=== PATIENT | male | born 1960 | race Caucasian/White ===

== ENCOUNTER 2021-08-28 16:45 | Inpatient (IN) | payer BC, OTHER ==
[~2021-08-28] VITALS: Ht 182.9 cm; Wt 89.9 kg
[2021-08-29] MEDS ORDERED: LISINOPRIL2.5 MG PO (00:08)
[2021-08-29] MEDS ORDERED: CARBIDOPA-LEVO1 EAC7 PO (00:10)
[2021-08-29] MEDS ORDERED: CARBIDOPA-LEVO1 EAC9 PO (00:12)
[2021-08-29] MEDS ORDERED: BUSPIRONE HCL10 MG PO (00:13)
[2021-08-29] MEDS ORDERED: LAMOTRIGINE200 MG PO (00:17)
[2021-08-29] MEDS ORDERED: QUETIAPINE FUM200 MG PO (00:20)
[2021-08-29] MEDS ORDERED: LEXAPRO 10 MG T10 M2 PO (00:20)
[2021-08-29] MEDS ORDERED: ATORVASTATIN CA20 MG PO (00:22)
[2021-08-29] MEDS ORDERED: CLONAZEPAM 0.50.5 M1 PO (00:24)
[2021-08-29] MEDS ORDERED: LIPITOR 20 MG T20 M1 PO (00:25)
[2021-08-29] MEDS ORDERED: METFORMIN HCL500 M3 PO (00:27)
[2021-08-29] MEDS ORDERED: ACID-PEP20 MG PO (00:27)
[2021-08-29] MEDS ORDERED: ASA81BEC PO (00:28)
[2021-08-29] MEDS ORDERED: SENNA PLUS TAB1 EACH PO (00:28)
[2021-08-29] MEDS ORDERED: ACETAMINOPHEN PO (00:30)
[2021-08-29] MEDS ORDERED: ZOFRAN4 MG PO (00:31)
[2021-08-29] MEDS ORDERED: HEALTHYLAX17 GM PO (00:33)
[2021-08-29] MEDS ORDERED: MAG-AL LIQUID30 ML PO (00:35)
[2021-08-29] MEDS ORDERED: VITAMIN D325 MC2 PO (00:37)
--- NOTE | 2021-08-29 03:37 | NUR ---
PT WAS ADMITTED TO [facility] ON 08/29/21 AT 0053. PT WAS COOPERATIVE WITH ADMISSION PROCESS AND SIGNED IN VOLUNTARILY. PT ENDORSED SI WITH NOT CURRENT PLAN OR INTENT. PT AGREED TO COME TO STAFF IF SI WORSENED. PT DENIED HI. PT ENDORSED AUDITORY AND VISUAL HALLUCINATIONS OF SEEING/ HEARING SATAN. PT WAS CONCERNED ABOUT GETTING HIS NIGHT TIME MEDS STATING WIHTOUT THEM HE WOULD NOT BE ABLE TO SLEEP. PT AMBULATES WITH WALKER STATING THAT HE DOES NOT FALL AND REQUESTED HIS BED ALARM BE TURNED OFF. RN EXPLAINED THE IMPORTANCE OF KEEPING THE BED ALARM ON. FALL PRECAUTIONS REMAIN IN PLACE. VITAL SIGNS WERE OBTAINED: RESULTS WNL SKIN ASSESSMENT PERFORMED: NO REMARKABLE FINDINGS PT WAS SEARCHED
[2021-08-29 09:08] VITALS: BP 109/71
[2021-08-29 11:30] LABS: ANION GAP 10 mmol/L (7-16); BUN 15 mg/dL (7-18); CALCIUM 9.5 mg/dL (8.5-10.1); CHLORIDE 103 mmol/L (98-107); CHOLESTEROL 94 mg/dL (<200); CO2 31 mmol/L (21-32); CREATININE 0.9 mg/dL (0.7-1.3); GLUCOSE 125 mg/dL (74-106); HDL CHOLESTEROL 53 mg/dL (>40); LDL CHOLESTEROL 21 mg/dL (<100); POTASSIUM 4.1 mmol/L (3.5-5.1); SODIUM 144 mmol/L (136-145); TC:HDL 1.8 Ratio (Not establshd); TRIGLYCERIDE 101 mg/dL (<150); VLDL 20 mg/dL (<40)
--- NOTE | 2021-08-29 13:53 | NUR ---
Assumed pt care at 0700. Pt was alert and oriented x4. Assessments completed, vss. Denies si/hi. No c/o pain at this time. Took meds whole no difficulty noted. lungs clear, active bowel sound. Calm, cooperative and depressed upon assessments. Ambulates with a walker. Continent of bowel and bladder. Attended afternoon groups. Make needs known to staff. At this time, Pt is in his room resting. Will continue to monitor.
[2021-08-29 14:31] LABS: URINE BILIRUBIN NEGATIVE (Negative); URINE BLOOD NEGATIVE (Negative); URINE CLARITY CLEAR; URINE COLOR YELLOW; URINE GLUCOSE-RANDOM* NEGATIVE (Negative); URINE KETONES NEGATIVE (Negative); URINE LEUKOCYTES-REFLEX TRACE (Negative); URINE NITRITE-REFLEX NEGATIVE (Negative); URINE PROTEIN (DIPSTICK) NEGATIVE (Negative)
--- NOTE | 2021-08-29 14:42 | NUR ---
08-29-2021--13:00--GROUP--Patient was in the [facility] area and present for group. (The topic was anger and where in our bodies we first start feeling angry.) He participated fully and shared his ideas and experiences with the group.
--- NOTE | 2021-08-29 17:32 | NUR ---
KATHRYN and Dr. Peguero met with Pt. Pt was oriented x4. Pt does endorse SI and HI. Pt stated he has auditory hullucinations. Pt stated "I hear satan and he tells me to hurt somebody". Pt reported previous suicide attempt 2 years ago by jumping through a closed window. Pt has lived at [facility] for 3-4 years. Pt stated his , Hallie, is Pt's DPOA. Pt has been 41 years and has 3 adult children. Pt worked as a diesel machanic for 20 years. Pt was dx with nikolas in 2002. Pt sees Dr. Earnest Lopez for neurology. Pt recieves outpt services at [facility]. Pt sees Dr. Jovany Santoyo for psychiatry. Pt's therapist is Lila at [facility]. Pt's /DPOA was able to talk to by phone. Pt did leave the room at this time. Hallie gave a brief history of the Pt's. Hallie was concerned that the Pt's mental health needs were not being met at his currently placement but explained that no other facility has accepted the Pt. Hallie informed she has looked for different placements in state and out of state with no luck. A family meeting was scheduled for 09/05/2021 @ 1130am. There were no further questions or concerns during this meeting. KATHRYN will continue to follow.
[2021-08-29 19:48] VITALS: BP 115/77
[2021-08-29 22:06] LABS: GLYCOHEMOGLOBIN (HGB A1C) 5.4 % (4.8-5.6)
--- NOTE | 2021-08-29 23:22 | NUR ---
AT ONSET OF QA DEVELOPER PT WAS SITTING IN DAY ROOM WATCHING TV. THIS SHIFT PT WAS ALERT AND ORIENTED X4. AFFECT WAS CONSTRICTED BUT PT DID MADE A JOKE AND LAUGH WITH STAFF. MOOD APPEARS TO BE IMPROVED SOME SINCE ADMISSION LAST NIGHT. PT WAS CONCERNED WITH MEDICATION CHANGES AND WAS WORRIED HE MAY NOT SLEEP WELL. PT DENIED HAVING SI AND HI. PT STATED HE WAS STILL SEEING AND HEARING SATAN BUT NOT MUCH. PT WAS COMPLIANT WITH MEDICATIONS AND VITAL SIGNS. FALL PRECAUTIONS ARE IN PLACE, BUT PT AMBULATES INDEPENDENTLY WITH A WALKER.
--- NOTE | 2021-08-30 11:56 | NUR ---
Admit to [facility]: Pt noted with dx DMII, parkinson's. Hx deep brain stimulation and sees a neurologist. Recently with visual and auditory hallucinations, med changes noted to sinemet and seroquel. On regular diet, no c/o chewing/swallowing issues. Intake of 100% all meals since admit. BMI 27, WNL. No reports of recent weight loss or poor intakes on admit screen. Place at low nutrition risk.
--- NOTE | 2021-08-30 12:48 | NUR ---
PATIENT WAS IN BED ASLEEP WHEN CARE ASSUMED. WHEN AWAKEN, PATIENT HAD BREAKFAST IN ROOM. MORNING MEDICATION GIVEN IN THE DAYROOM, WELL TOLERATED. PATIENT PARTICIPATES IN GROUP THERAPY. PATIENT DENIES SUICIDAL/HOMICIDAL IDEATION, HE RATES BOTH DEPRESSION/ANXIETY 5/10. PRN TYLENOL GIVEN FOR C/O HEADACHE 06/10, WITH PARTIAL EFFECT. PAIN DECREASED TO 5/10 UPON REASSESSMENT. PATIENT CONTINUE TO ENDORSE VESUAL HALLUCINATION SEES "DEVIL WITH HORN". AFFECT IS FLAT/BLUNTED, MOOD IS EUTHYMIC. NO SIGN OF ACUTE DISTRESS NOTED, WILL MONITOR FOR SAFETY.
[2021-08-30 19:43] VITALS: BP 99/62
[2021-08-30 19:49] VITALS: BP 106/69
--- NOTE | 2021-08-30 22:09 | NUR ---
PATIENT RESTING IN THE COMMON AREA BY HIMSELF WATCHING TV. PT IS CALM AND COOPERATIVE. STATES THAT HE WANTS TO TAKE HIS MEDICATIONS AT 2000. SHOWS NO S/S OF AGGRESSION, HALLUCINATIONS OR ANXIETY. APPEARS TO HAVE FLAT AFFECT. COMPLIES WITH MEDICATION AND TREATMENT. DENIES ANY PAIN. VSS. PATIENT WENT TO BED AFTER TAKING HIS MEDICATIONS.
[2021-08-31 09:11] VITALS: BP 96/68
[2021-08-31 11:22] VITALS: BP 96/67
--- NOTE | 2021-08-31 14:49 | NUR ---
Sunny started the day off calm and cooperative and was participating in morning group. He voiced some anxiety 05/11 but wanted to see if his scheduled seroquel would help. He denied RIVERA at that time and denied SI/HI. When group had concluded pt went to his room and shortly after was noted screaming from his room. Staff approached pt but pt was unable to verbalize what was bothering him, although he appeared fearful. Dr. Whitney also witnessed this and ordered ativan 2 mg IM and cogentin 1 mg IM to be given as a one time order. Pt was compliant with PRN medication given and voiced wanting to take a nap. He took a nap and voiced "feeling a lot better" once up. He then participated in evening groups and continued to be medication and meal compliant. Pt denied pain or any physical complaints at this time. Will continue to monitor.
[2021-08-31 19:19] VITALS: BP 118/78
--- NOTE | 2021-08-31 22:23 | H ---
[facility] [place] [address] HISTORY AND PHYSICAL Name: MAYITO DIAZ Room #: 524B-B ADM IN M.R.#: [id number] Admission: 08/29/21 Attend Phys: Waldemar Whitney DO Discharge: Date of : 62 Report #: [id number] THIS REPORT FOR: cc: Terell Fisher MD, Mark C. MD Kerstein,Waldemar Ball DO ~ DATE OF SERVICE: 08/29/2021 DATE OF ADMISSION: 08/29/2021 DATE OF EVALUATION: 08/29/2021 ATTENDING PSYCHIATRIST: Waldemar Whitney DO MEDICAL CONSULTANTS: LIBRA Chacko and Junito Maier MD and his hospitalist team. REASON FOR PSYCHIATRIC ADMISSION: Suicidal ideation, command auditory hallucinations, advancing Parkinson's disease, possible Parkinson's related dementia. SOURCES OF INFORMATION: Records from [facility], which was the sending hospital, telephone conversation with his , Hallie, interview with the patient, records from [facility]. HISTORY OF PRESENT ILLNESS: This is a 60-year-old disabled, male, , father of several children. The patient is a resident at [facility]. His admission date there was 07/11/2021. He has been in long-term care facilities since around 2017. The patient has significant Parkinson's related dementia, diagnosed around 2002. He had deep brain stimulation placed in 2009. He is managed by Dr. Earnest Lopez, movement disorders neurologist at [facility]. The patient is unclear if he has an outpatient psychiatrist. Primary care physician is Terell Fisher in [facility]. The patient is able to tell me the month, day, date, year with a little bit of delay on interview today, so that is a good thing. He is seen by Dr. Santoyo at [facility] in [place], [place]. Patient had been in a rehab facility to address debilitating Parkinson's disease. He was experiencing increased depression, suicidal ideation, thoughts of harming others and some auditory hallucinations, this was per his roommate. In terms of the others, he is not wanting to harm anyone and reported the thoughts appropriately. I guess he was screened that day and they did not send him to the hospital. Moving onto records from [facility], a 60-year-old male with a history of high blood pressure, diabetes, ulcerative colitis, Parkinson's disease and depression and anxiety, previous history of self-harming and required inpatient [facility] [address] [place] [address] HISTORY AND PHYSICAL Name: MAYITO DIAZ Room #: 524B-B ADM IN M.R.#: [id number] Admission: 08/29/21 Attend Phys: Waldemar Whitney DO Discharge: Date of : 62 Report #: [id number] psychiatric admission, who presents from [facility] for psychiatric screening. The patient endorses ongoing depression and anxiety over numerous factors including his health and housing status. He states he has been living at [facility] for the past 3 to 4 years, was in the ER on 06/21 with SI, transferred to an inpatient psychiatric facility. The related that this is a new facility in [place] near [facility]. The patient was placed on Depakote there and the patient did not tolerate it well, became excessively sedated and medicines were discontinued. The patient has recurrent self-harm thoughts of wanting to . Dr. Earnest Lopez reiterated this, thinking about throwing himself out of the window, the ER reported, also endorses homicidal thoughts, but not directed to any particular person. Denies use of drugs or alcohol. assisted medication regimen, I will review in a bit. He has an [id number] DNR order and I have noticed no code here at [facility]. MEDICATIONS: At [facility], carbidopa/levodopa 50/200mg cr one tab oral at bedtime, carbidopa 25/100 one tablet by mouth 1 time a day, carbidopa 25/100 one tablet 3 times a day. According to Dr. Lopez, the morning dose was supposed to be a tablet and a half, then at 10:00, 1:00, and 4:00, and then the evening dose, cholecalciferol 1000 International Units daily by mouth, clonazepam 0.5 mg by mouth 2 times a day, famotidine 20 mg by mouth 2 times a day, lamotrigine one tablet by mouth 2 times a day. I guess he is on that due to the DBS device, Lexapro 10 mg oral daily, Linzess 145 mcg by mouth 1 time a day related to ulcerative colitis, acetaminophen 650 by mouth q. 6 hours p.r.n. for pain, fever; aspirin 81 mg oral daily for heart protection, atorvastatin 20 mg oral daily, hyperlipidemia; buspirone 2 tablets by mouth 3 times a day, lisinopril 2.5 mg oral daily for hypertension, metformin 2000 mg by mouth in the evening, milk of magnesia, polyethylene glycol, senna 8.6 mg daily. MEDICAL HISTORY: Depressive disorder, Parkinson's disease, DBS in 2008, catheterization of an artery. FAMILY HISTORY: Father, emphysema in lung. Mother, cardiovascular and diabetes mellitus. SOCIAL HISTORY: Alcohol current beer 1-2 times per year. Employment, disability. Lives in long-term care facility, uses a walker. Former smoker, unclear pack year history. LABORATORY DATA: From [facility], urinalysis showed protein at 10 mg/dL, urobilinogen 2 mg/dL, leukocyte esterase trace, wbc's 10-25. There was a culture sent. The patient's urine drug screen was negative. White count 7.2, H and H 15.8 and 44.8, platelet count 224. Eosinophil percentage was 0.8%, which was low. Sodium 139, potassium 3.9, chloride 103, bicarbonate 27, anion gap 9, glucose 119, BUN 9, creatinine 0.6, calcium 9.4, total protein 7.0, albumin 4.4, [address] [address] HISTORY AND PHYSICAL Name: MAYITO DIAZ Room #: 524B-B ADM IN M.R.#: [id number] Admission: 08/29/21 Attend Phys: Waldemar Whitney DO Discharge: Date of : 62 Report #: [id number] alkaline phosphatase 103, AST 9, ALT 11, total bilirubin 0.5, GFR sik-Pmozxbg-Jfkohwjh greater than 90. Acetaminophen less than 5, salicylate less than 0.3. Ethanol level less than 10. COVID PCR was negative. Flu A and B negative. RSV by PCR negative. The patient reports a previous history of suicide attempt, but I do not have the details of it and it looks like just in note from outside hospital. PHYSICAL EXAMINATION: VITAL SIGNS: Here at the [facility], temperature 36.6, pulse 78, respirations 17, BP 109/71, O2 sat 96%. BMI 26.9, 182.88 cm. GENERAL: Slow gait, frail-appearing, wearing street clothes red shirt. MENTAL STATUS EXAMINATION: Well-developed, ill-appearing male. He does have some left facial droop, unclear duration, attention fair. Concentration limited. Speech slow, soft, monotone. Thought Process: Linear and goal directed. mood/affect- constrcited Thought content focused on "getting help." Endorsed auditory hallucinations, no visual hallucinations. Denied suicidal intent or plan presently, but recently reported this. Denied homicidal intent or plan. Memory not formally tested. Insight and judgment limited. Fund of knowledge below average. LABORATORY DATA: No radiology, no microbiology. 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 Denied history of service. FORMULATION: A 60-year-old male, patient of Dr. Earnest Lopez at with suicidal ideation, auditory hallucinations. REVIEW OF SYSTEMS: CONSTITUTIONAL: No pain, no weakness. No fatigue. EAR, NOSE, MOUTH, THROAT: No ear pain, no sore throat. RESPIRATORY: No shortness of breath, no cough. CARDIOVASCULAR: No chest pain, no palpitations, no syncope. GASTROINTESTINAL: No abdominal pain, no nausea, no vomiting, no diarrhea. GENITOURINARY: No dysuria, no hematuria. NEUROLOGIC: No headache, no dizziness, no numbness, no weakness. PSYCHIATRIC: Depression, SI, auditory hallucinations. Otherwise, 10-point review of systems was negative. ALLERGIES: CONTRAST DYE AND PREDNISOLONE. DIAGNOSES: At this time, major depressive disorder, single episode, severe degree with psychotic features, ruling out for Parkinson's related dementia, [facility] [address] [place] [address] HISTORY AND PHYSICAL Name: MAYITO DIAZ Room #: 524B-B ADM IN M.R.#: [id number] Admission: 08/29/21 Attend Phys: Waldemar Whitney DO Discharge: Date of : 62 Report #: [id number] Parkinson's disease, status post deep brain stimulation implantation in 2008 and 2009. PLAN: Evaluate, stabilize, obtain collateral. The patient is voluntary. Regarding his medications, I spoke to Dr. Lopez. We will make a few changes, so his Sinemet 25/100 regimen is back to 1.5 tabs at 0700, one tab at 10:00, 1:00, 4:00 p.m., and 25/100 of long-acting Sinemet CR or ER in the evening. Continue with metformin 1000 mg with dinner. Seroquel will be given during the day at 25 mg in the morning and 25 mg at 1600 and then 200 mg at bedtime, lisinopril 2.5 mg oral daily, lamotrigine 200 mg p.o. b.i.d. for seizure prevention. famotidine 20 mg daily, Lexapro 10 mg oral daily, vitamin D 1000 International Units oral daily. Discontinue buspirone, atorvastatin 20 mg oral daily, aspirin 81 mg oral daily, senna 8.6 mg daily p.r.n., polyethylene glycol daily, discontinue clonazepam as well. STRENGTHS: Insured, has a placement, has support. WEAKNESSES: Early aggressive Parkinson's disease, possible Parkinson's related dementia. Once the hallucinations are somewhat down, we would like to consider neuropsychological testing for Parkinson's related dementia. I think this way the family and the treating physician knowledge of prognosis may better line up with aggressiveness of medication regimen. Time spent on this case, greater than 60 minutes, greater than 50% of time was in review of records and coordination of care. <ELECTRONICALLY SIGNED> By: Waldemar Whitney, 08/31/21 [id number] Waldemar Whitney, /nt
--- NOTE | 2021-09-01 03:49 | NUR ---
PATIENT DOING WELL THIS EVENING. HE AGAIN REQUESTED HIS HS MEDICATIONS AT 1999. HE STATES THAT HE HAS NOT HAD ANY MORE EPISODES OF HALLUCINATIONS SINCE EARLIER IN THE DAY. HE IS COMPLIANT AND FOLLOWS ALL DIRECTIONS. CONTIUES TO PRESENT WITH FLAT AFFECT. DENIES ANY PAIN. VSS. AMBULATES WELL WITH HIS WALKER. NO S/S OF DISTRESS NOTED. WILL CONTINUE TO MONITOR FOR CHANGES IN PATIENT STATUS.
[2021-09-01 09:07] VITALS: BP 116/76
[2021-09-01 10:09] VITALS: BP 116/76
--- NOTE | 2021-09-01 15:07 | NUR ---
Updates were faxed to [facility] Forst
[2021-09-01 19:30] VITALS: BP 125/71
--- NOTE | 2021-09-02 02:21 | NUR ---
PATIENT RATES HE ANXIETY A 3/10 AND DENIES DEPRESSION. PATIENT STATES HE IS NO SI OR HI AT THIS TIME. PATIENT AMBULATES WITH WALKER, IS MEDICATION COMPLIANT, IS CONTINENT OF BOWEL AND BLADDER AND IS VERY PLEASANT.
[2021-09-02 09:27] VITALS: BP 106/61
[2021-09-02 11:13] VITALS: BP 106/61
--- NOTE | 2021-09-02 15:00 | NUR ---
Sunny was alert and oriented x4 this shift. He was calm, cooperative, and pleasant with a flat, constricted affect. He reported anxiety 5/10 this morning and rated depression 3/10, 10 being the worst. This RN and pt discussed coping skills and pt stated he was going to read to help his anxiety. Pt a couple hours later came up stating his anxiety was starting to peak and asked for PRN medication; ativan 1 mg PO PRN given per MAR with effectivenss. Pt participated in groups throughout the day and was medication and meal compliant, without difficulty. He ambulated using his walker and transfers independently with cares. He denied SI/HI/RIVERA this shift and stated the last time he experienced RIVERA was on . Pt denied physical c/o this shift and did not appear in distress. Will continue to monitor.
[2021-09-02 19:33] VITALS: BP 111/67
--- NOTE | 2021-09-03 02:55 | NUR ---
PATIENT HAS BEEN IN DAYROOM ALL EVENING, RATES ANXIETY A 4/10 AND DENIES SI/HI. PATIENT HAS A FLAT AFFECT AND DENIES HEARING VOICES OR SEEING THINGS. PATIENT IS MEDICATION COMPLIANT, AMBULATES WITH WALKER, IS CONTINENT OF BOWEL AND BLADDER. NO CONCERNS NOTED
[2021-09-03 09:52] VITALS: BP 132/88
--- NOTE | 2021-09-03 10:56 | NUR ---
Faxed patient updates
[2021-09-03 12:55] VITALS: BP 132/88
--- NOTE | 2021-09-03 16:12 | NUR ---
Sunny is alert and oriented x4. This morning there was some confusion on the rules regarding COVID and pt's being allowed out of their rooms. Pt voiced frustration regarding this as he believed he was told he could only come out of his room for groups. Clarification was received from the house mover supervisor and pt was updated that he may come out of his room but was encouraged to wear a mask and distance self from others, which pt was compliant with. Pt voicing increasing anxiety throughout the morning and received PO PRN ativan around 1130 with effectiveness. Pt also had c/o a RIVERA and received tylenol with effectiveness. Pt was medication and meal compliant, without difficulty. He denied SI/HI/RIVERA and participated in groups, will continue to monitor.
[2021-09-03 19:30] VITALS: BP 104/63
--- NOTE | 2021-09-04 00:13 | NUR ---
PATIENT DOING WELL THIS HS. RESTING IN COMMON AREA WATCHING TV. STATES THAT HE HAS NOT HAD ANY A/V/H TODAY. DENIES ANY PAIN OR NEEDS. REQUESTS TO HAVE HIS MEDS EARLY AGAIN SO HE CAN GO TO BED. COMPLIANT WITH ALL MEDICATION AND TREATMENT. AMBULATES WELL WITH ASSISTANCE OF HIS WALKER. NO S/S OF DISTRESS NOTED. WILL CONTINUE TO MONITOR FOR CHANGES IN STATUS.
[2021-09-04 09:41] VITALS: BP 104/73
[2021-09-04 12:37] VITALS: BP 104/73
--- NOTE | 2021-09-04 13:13 | NUR ---
RESUMMED CARE FROM OVERNIGHT SHIFT THIS AM, PATIENT IN ROOM SITTING ON BED QUIET. I WAS TALKING WITH PATIENT AND DOING MY ASSESSMENT PATIENT STATES HE WAS HEARING VOICES. HE STATES THE VOICES WAS TELLING HIM TO KILL SELF, PATIENT STARTED YELLING AND SCREAMING AND COVERED HIS EARS. I GAVE PATIENT HALDOL 2 MG IM AND GAVE HIS MORNING MEDICATION TO HELP PATIENT CALM DOWN. PATIENT DENIES SI/HI/VH BUT HAS AUDITORY HALLUCINATIONS. PATIENTS ABDOMEN SOFT BOWEL SOUNDS PRESENT, PATIENTS LUNGS CLEAR. AFTER MEDICATION PATIENT CAME TO NURSES STATION AND ASKED FOR ATIVAN. I TOLD PATIENT HE ALREADY HADHIS MORNING DOSE AND IT WAS TO EARLY TO GET MORE. PATIENT HAS CALMED DOWN AND RESTING QUIETLY WILL CONTINUE TO MOMITOR PATIENT FOR SAFETY AND BEHAVIORS.
[2021-09-04 14:24] LABS: ALBUMIN 3.8 g/dL (3.4-5.0); CALCIUM 9.2 mg/dL (8.5-10.1); CREATININE 0.9 mg/dL (0.7-1.3); TOTAL BILIRUBIN 0.4 mg/dL (0.2-1.0)
--- NOTE | 2021-09-04 16:48 | NUR ---
SW completed SLUMS with the Pt. Pt scored 21/30. Assessment placed in the chart
--- NOTE | 2021-09-05 01:03 | NUR ---
AT ONSET OF SHIFT PT WAS SITTING CALMLY IN THE DAY ROOM WATCHING TV. THIS SHIFT PT WAS ALERT AND ORIENTED X4. AFFECT WAS CONSTRICTED BUT PT DID SMILE AT RN. PT WAS COMPLIANT WITH VITAL SIGNS AND MEDICATIONS. REQUESTED TYLENOL FOR A HEAD ACHE IN THE EVENING. SPEECH WAS DELAYED. PT STATED HIS DEPRESSION IS BETTER. WHEN ASKED ABOUT SI, PT PAUSED FOR A LONG TIME BEFORE REPLYING NO. WHEN ASKED ABOUT HALLUCINATIONS PT STATED AUDITORY HALLUCINATIONS WERE BAD TODAY, BUT THEY WERE BETTER IN THE EVENING. FALL PRECAUTIONS ARE IN PLACE.
[2021-09-05 05:27] LABS: ABSOLUTE NEUTROPHILS 3.3 thou/uL (1.4-8.2); BASOPHILS 0.6 % (0.0-2.0); EOSINOPHILS 2.5 % (0.0-3.0); HEMATOCRIT 43.1 % (42.0-52.0); HEMOGLOBIN 14.7 gm/dL (14.0-18.0); LYMPHOCYTES 34.9 % (24.0-44.0); MCH 31.2 pg (26.0-34.0); MCV 91.8 fL (80.0-100.0); MONOCYTES 7.6 % (1.0-8.0); PLATELET COUNT 212 thou/uL (150-400); POLYS 54.4 % (36.0-66.0); RDW 13.5 % (10.5-14.5); WBC 6.1 thou/uL (4.0-11.0)
[2021-09-05 09:28] VITALS: BP 109/76
[2021-09-05 09:29] VITALS: BP 109/76
--- NOTE | 2021-09-05 11:34 | NUR ---
RT Progress Note- Sunny has been present in most recreation therapy groups since his admission. He has missed two groups in particular following outbursts of yelling and panic, requiring medication to be given. He states both times that he was having hallucinations of a devil and they were terrifying. When present in groups, Sunny does participate in discussions but does so with a flat affect and very soft speech. He is able to identify having things in his life that make it worth living for such as family, but endorses still feeling depressed. Of note- patient enjoys talking about sports (especially basketball and football) and this seems to brighten his affect. MANAGER OF INVESTIGATIONS will continue to encourage his participation.
--- NOTE | 2021-09-05 13:48 | NUR ---
Sunny was alert and oriented x4 this shift. He was calm and cooperative with a constricted affect throughout the day. He is anxious at times, and voiced increased anxiety this morning and received PRN PO ativan with effectiveness per JAN. Pt also received tylenol PRN for a RIVERA with effectiveness. He was medication and meal compliant, without difficulty. He stated he had not had a BM in 2 days and was given milk of magnesia and prune juice per pt request. He denied SI/HI/RIVERA and stated that last time he experienced RIVERA was yesterday. Pt had a family meeting with KATHRYN, Dr. Whitney and his today. Pt participated in groups throughout the day. He ambulated using his walker and is able to function independently around the unit, without difficulty. Will continue to monitor.
[2021-09-05 19:49] VITALS: BP 102/84
[2021-09-05 20:30] VITALS: BP 102/84
--- NOTE | 2021-09-06 02:50 | NUR ---
PATIENT HAD REQUESTED TO BE GIVEN A PAIN PILL WITH HIS HS MEDICATIONS FOR [id number]. WHEN THIS NURSE ASSESSED HIS PAIN UPON GIVING HS MEDICATIONS, HE STATED HIS PAIN WAS GONE AND DID NOT NEED ANYTHING. HE TOOK HIS SCHEDULED MEDICATIONS WITHOUT INCIDENT. SLEPT QUIETLY INTERMITTENTLY, ABLE TAKE SELF TO THE TOILET INDEPENDENTLY. CONTINUE POC.
--- NOTE | 2021-09-06 08:49 | NUR ---
Followup: continues to eat well, 75-100% of meals. No new wt since 08/31. Continue regular diet. Remains low nutrition risk
[2021-09-06 09:43] VITALS: BP 105/68
[2021-09-06 11:27] VITALS: BP 105/68
--- NOTE | 2021-09-06 15:47 | NUR ---
Sunny was alert and oriented x4 throughout the day. He was calm, cooperative, and pleasant with a blunted affect. He voiced c/o anxiety this afternoon leading up to his 1500 meeting with his and request ativan PO given per MAR with effectiveness. This morning pt stated that he had not had a BM in 3 days and was given prune juice; pt later reported having a BM. Senna BID was ordered for pt, but pt refused his first dose stating "I don't need that". Pt was otherwise meal and medication compliant, without difficulty. Pt denied SI/HI/RIVERA and contracted for safety. He attended groups and was in the dayroom for most of the shift. During tx team we discussed possible D/C for end of the week. Pt did not voice other complaints this shift, will continue to monitor.
--- NOTE | 2021-09-06 18:58 | NUR ---
KATHRYN and Dr. Peguero particpated in a phone call with Hallie. The Pt was also apart of this meeting. An update was given on the Pt and medications were discussed. Discharge was also discussed. Pt will need a follow up appt with psychiatrist, therapist, and PCP. KATHRYN spoke with the DON at [facility]. Discharge was set up for 09/08/2021 @ 1000. Pt will be transported by [facility]
[2021-09-06 19:37] VITALS: BP 103/70
--- NOTE | 2021-09-07 04:38 | NUR ---
ASSUMED CARE ON 09/06/21 @ 1900, SEATED ON THE SOFA IN THE DAY ROOM WATCHING TV MOVIE, COOPERATIVE WITH CARE AND ASSESSMENT. HRRR, LUNGS CTA ABILAT ABD N X 4Q, REPORTS GOOD BM TODAY. REFUSES SENNA. PLEASANT AFFECT NOTED A&OX3-4. RETIRED TO BED @ HS. AMBULATES WITH A WALKER WITH A STEADY GAIT. SCHEDULED TO D/C ON Saturday09/08/21.
[2021-09-07 09:55] VITALS: BP 104/67
[2021-09-07 11:10] VITALS: BP 104/67
--- NOTE | 2021-09-07 12:03 | NUR ---
Assumed care from cloth drier this am. Client was in room sitting on bed during this time. Client was oriented 4x at this time. Client denied any anxiety and depression and stated that he did not have any audio or visual hallucinations today. Client stated that he was in pain, having a headache at 5/10 and requested prn tylenol. Client denied si and hi during the assessment. Client present with clear lung sounds upon ausculttation. Bowel sounds were present in all quadrants. Client voiced that he would be leaving on Saturday to go to a facility, and during this time, client and nursing spoke about client plans and goals. Morning medications were given to client, as well as prn medications. No further concerns at this time. Will continue to monitor for safety and psychiatric concerns.
--- NOTE | 2021-09-07 18:20 | NUR ---
Pt has the following follow up appointments: Psychiatry- Dr Jovany Santoyo 09/11/2021 @ 1345 Psychotherapy- Lila ( Tim Lara) 09/13/2021 @ 1037
[2021-09-07 19:16] VITALS: BP 95/58
--- NOTE | 2021-09-08 03:08 | NUR ---
PATIENT IS HAPPY TO BE LEAVING AND STATES HE HAS A MORE POSTIVE OUTLOOK ON LIFE. PATIENT RATES ANXIETY A 4/10 AND DEPRESSION 2/10 AND MELINA PAIN. PATIENT IS ATTENDING GROUPS AND BELIEVES THEY HAVE HELPED. SLEEP AND APPETITE ARE GOOD. PATIENT IS MEDICATION COMPLIANT, CONTINENT OF BOWEL AND BLADDER AND USES A WALKER TO AMBULATE. DENIES SI/HI.
[2021-09-08] MEDS ORDERED: SEROQUEL300 MG PO (09:07)
[2021-09-08 09:08] VITALS: BP 117/75
[2021-09-08] MEDS ORDERED: SEROQUEL 25 MG25 MG PO (09:08)
[2021-09-08] MEDS ORDERED: CARBIDOPA-LEVO1 EAC9 PO (09:10)
[2021-09-08] MEDS ORDERED: SINEMET 25-1001 EAC1 PO (09:11)
[2021-09-08] MEDS ORDERED: CARBIDOPA-LEVO1 EAC8 PO (09:12)
[2021-09-08] MEDS ORDERED: SENNA8.8 MG/5 M PO (09:15)
[2021-09-08] MEDS ORDERED: METFORMIN HCL500 MG PO (09:16)
--- NOTE | 2021-09-08 11:52 | NUR ---
Assumed pt care at 0700. Pt was alert and oriented x4. Assessments completed, vss. Lungs clear, active bowel sounds. DENIES SI/HI, c/O PAIN, TYLENOL administered as ordered. Took meds whole, no difficulty noted. Ambulates with a walker. C/o anxiety, prn Ativan administered. Continent of bowel and bladder. Makes needs known to staff. 1040 pt was d/c with his belongings, d/c packet and d/c summary. Pt was transported via w/c to ER exit. 1152 report was called to Nila at [facility].
--- NOTE | 2021-09-10 21:27 | D ---
[facility] [place] [address] DISCHARGE SUMMARY Name: MAYITO DIAZ Room #: 528A-A DIS IN M.R.#: [id number] Admission: 08/29/21 Attend Phys: Waldemar Whitney DO Discharge: 09/08/21 Date of : 62 Report #: [id number] THIS REPORT FOR: cc: Terell Fisher MD, Mark C. MD Kerstein,Waldemar Ball DO ~ DATE OF SERVICE: 09/08/2021 INPATIENT PSYCHIATRIC DISCHARGE SUMMARY ATTENDING PSYCHIATRIST: Waldemar Whitney D.O. VMWARE ENGINEER: Dr. Cody Lr. DISCHARGE DIAGNOSES: 1. Major depressive disorder, recurrent, severe degree with psychotic features, improved. 2. Parkinson's disease. 3. Mild neurocognitive disorder with SLUMS score of 23/30. Additional medical comorbidities, hypertension, hyperlipidemia, diabetes mellitus, gastroesophageal reflux disease, constipation, gait disturbance secondary to Parkinson's disease. The patient is discharging to the [facility]. He received his psychiatric care by Dr. Santoyo in [facility] in [place]. PCP is in private practice, Faheem is a long time patient and did have deep brain stimulation, which is managed by Dr. Earnest Lopez at the [facility]. Please send discharge summary to all the above-named providers. The patient ambulates with a gait, needs assistance with bathing. DIET: Regular. ACTIVITY LEVEL: As tolerated. DISCHARGE MEDICATIONS: Lisinopril 2.5 mg oral daily for hypertension, lamotrigine 200 mg oral twice daily for mood stabilization, Lexapro 10 mg oral daily for depression, atorvastatin 20 mg oral daily for hyperlipidemia, famotidine 20 mg oral twice daily for GERD, aspirin 81 mg oral daily for hypertension, vitamin D3 25 mcg oral daily for supplementation, Seroquel 300 mg oral at bedtime and 75 mg oral with meals for psychosis. His Sinemet regimen is one 25/100 tablet at 0700, one 25/100 tablet at 10:00 a.m., 1:00 p.m., 4:00 p.m. and one 25/100 ER tablet at 2100. He takes his Senna liquid 8.8 mg oral twice daily, metformin 1000 mg oral daily with dinner for mild diabetes. LABORATORY DATA: This admission, hematology: White count 6.1, H and H 14.7 and 43.1, platelet count 212. CMP was within normal limits except AST and ALT mildly low at 14 and 11. Hemoglobin A1c normal at 5.4. Triglycerides 101, [address] [address] DISCHARGE SUMMARY Name: MAYITO DIAZ Room #: 528A-A [facility] IN ..#: [id number] Admission: 08/29/21 Attend Phys: Waldemar Whitney DO Discharge: 09/08/21 Date of : 62 Report #: [id number] cholesterol 94, LDL 21, HDL 53. Urinalysis this admission on 08/29 was negative. COVID-19 serology was negative on 08/28, 08/31, and 09/02, that was by the PCR. REASON FOR ADMISSION: Back on 08/29, a 61-year old male, , father of several children or adults, he is a long-term care resident at [facility], apparently the patient had suicidal ideation, command auditory hallucinations. HOSPITAL COURSE: The patient was admitted to Geriatric Psychiatry Unit. The patient was initially very anxious, cautious, and guarded. He had an incident a few days after admission where he was howling and persistently stated that the devil was in his presence. This was treated with intramuscular benzodiazepine. Overall, the patient's course improved. I elected to go ahead and titrate Seroquel, this is titrated total 525 mg oral daily. I did speak with Dr. Earnest Lopez about this case. We made some adjustments to his Sinemet regimen including reducing the evening dose to one 25/100 continuous release instead of 2. He had been on 1.5 tablets of 25/100 Sinemet at 7:[address] Bloom who was covering for me that was held as a trial and put it back on 1 tablet each day 1.5. The patient had fair mobility, still required a walker. His mood improved. We had a telephonic family meeting with his , discussed what had been done. The patient does have a long history of suicidal ideation and will require continued multidiscipline management with Primary Care, Movement Disorders, Neurology, and Psychiatry. CONDITION AT DISCHARGE: On the day of discharge, the patient was stable. No SI, no HI, future oriented. VITAL SIGNS: Temperature 35.9, pulse 92, respirations 17, BP 117/75, O2 sat 95%, weight 89.868 kg, BMI 26.9. MENTAL STATUS EXAMINATION: Well-developed, tall male with a avelar and street clothes, assisted gait. I did check him for presence of cogwheeling in bilateral biceps tendons and wrists and it was negative on exam today. A well-developed adult male apparently stated age. Attention and concentration fair. Speech slightly slow, normal volume. Thought Process: Linear and goal oriented. Thought content focused on discharge. Denied suicidal or homicidal ideation, auditory, visual, or tactile hallucinations. Mood and affect okay, good, congruent, euthymic. Memory not formally tested today. Insight and judgment fair. Fund of knowledge at least average. PROGNOSIS: For this patient is fair to guarded depending on the progression of his Parkinson's disease. I have warned him that with a diagnosis of mild neurocognitive disorder, it does pose up to a 50% chance of progression to dementia over the next several years. The patient should have SLUMS, MMSE like [facility] [address] [place] [address] DISCHARGE SUMMARY Name: MAYITO DIAZ Room #: 528A-A [facility] IN .R.#: [id number] Admission: 08/29/21 Attend Phys: Waldemar Whitney DO Discharge: 09/08/21 Date of : 62 Report #: [id number] screening tests done every 3-4 months in clinic setting. I also advised the patient that he was nearing the upper end in which cognitive enhancers will be used. 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 <ELECTRONICALLY SIGNED> By: Waldemar Whitney DO 09/10/21 2127 [id number] Waldemar Whitney DO /nt
== END 2021-09-08 10:40 | DRG 885 ==
LOC: SBH
PROVIDERS: Nurse Practitioner Family; Nurse Practitioner Psychiatric/Mental Health; Psychiatry & Neurology Psychiatry; ADMIT Psychiatry & Neurology Psychiatry; ATTEND Psychiatry & Neurology Psychiatry
DX: F33.3 Major depressive disorder, recurrent, severe with psychotic symptoms (principal); R45.851 Suicidal ideations; G20 Parkinson's disease; E78.5 Hyperlipidemia, unspecified; I10 Essential (primary) hypertension; Z66 Do not resuscitate; E11.9 Type 2 diabetes mellitus without complications; K21.9 Gastro-esophageal reflux disease without esophagitis; R26.9 Unspecified abnormalities of gait and mobility; G47.33 Obstructive sleep apnea (adult) (pediatric); F98.5 Adult onset fluency disorder; K59.00 Constipation, unspecified; F39 Unspecified mood [affective] disorder; F02.80 Dementia in other diseases classified elsewhere, unspecified severity, without behavioral disturbance, psychotic disturbance, mood disturbance, and anxiety; F01.50 Vascular dementia, unspecified severity, without behavioral disturbance, psychotic disturbance, mood disturbance, and anxiety; F41.9 Anxiety disorder, unspecified; Z20.822 Contact with and (suspected) exposure to COVID-19; Z79.899 Other long term (current) drug therapy; Z23 Encounter for immunization; Z83.3 Family history of diabetes mellitus; Z82.49 Family history of ischemic heart disease and other diseases of the circulatory system; Z83.6 Family history of other diseases of the respiratory system; Z87.891 Personal history of nicotine dependence; Z91.51 Personal history of suicidal behavior; Z88.8 Allergy status to other drugs, medicaments and biological substances; Z91.041 Radiographic dye allergy status
CPT/HCPCS: 10880

== ENCOUNTER 2021-08-28 20:13 | Emergency (ER) | payer BC, OTHER ==
[~2021-08-28] VITALS: Ht 182.9 cm; Wt 86.2 kg
[2021-08-29] MEDS ORDERED: LISINOPRIL2.5 MG PO (00:08)
[2021-08-29] MEDS ORDERED: CARBIDOPA-LEVO1 EAC7 PO (00:10)
[2021-08-29] MEDS ORDERED: CARBIDOPA-LEVO1 EAC9 PO (00:12)
[2021-08-29] MEDS ORDERED: BUSPIRONE HCL10 MG PO (00:13)
[2021-08-29] MEDS ORDERED: LAMOTRIGINE200 MG PO (00:17)
[2021-08-29] MEDS ORDERED: QUETIAPINE FUM200 MG PO (00:20)
[2021-08-29] MEDS ORDERED: LEXAPRO 10 MG T10 M2 PO (00:20)
[2021-08-29] MEDS ORDERED: ATORVASTATIN CA20 MG PO (00:22)
[2021-08-29] MEDS ORDERED: CLONAZEPAM 0.50.5 M1 PO (00:24)
[2021-08-29] MEDS ORDERED: LIPITOR 20 MG T20 M1 PO (00:25)
[2021-08-29] MEDS ORDERED: METFORMIN HCL500 M3 PO (00:27)
[2021-08-29] MEDS ORDERED: ACID-PEP20 MG PO (00:27)
[2021-08-29] MEDS ORDERED: SENNA PLUS TAB1 EACH PO (00:28)
[2021-08-29] MEDS ORDERED: ASA81BEC PO (00:28)
[2021-08-29] MEDS ORDERED: ACETAMINOPHEN PO (00:30)
[2021-08-29] MEDS ORDERED: ZOFRAN4 MG PO (00:31)
[2021-08-29] MEDS ORDERED: HEALTHYLAX17 GM PO (00:33)
[2021-08-29] MEDS ORDERED: MAG-AL LIQUID30 ML PO (00:35)
[2021-08-29] MEDS ORDERED: VITAMIN D325 MC2 PO (00:37)
[2021-08-29 00:38] VITALS: BP 122/82
== END 2021-08-29 00:41 ==
LOC: ER 20:13
PROVIDERS: Nurse Practitioner
DX: F91.9 Conduct disorder, unspecified (principal); Z20.822 Contact with and (suspected) exposure to COVID-19; Z79.84 Long term (current) use of oral hypoglycemic drugs; Z79.82 Long term (current) use of aspirin; Z79.891 Long term (current) use of opiate analgesic; Z79.899 Other long term (current) drug therapy; Z91.041 Radiographic dye allergy status; Z88.8 Allergy status to other drugs, medicaments and biological substances

== ENCOUNTER 2021-11-01 12:39 | Inpatient (IN) | payer BC, OTHER ==
[~2021-11-01] VITALS: Ht 182.9 cm; Wt 89.9 kg
[~2021-11-01 12:39] MED LIST: ACETAMINOPHEN PO; ACID-PEP20 MG PO; ASA81BEC PO; ATORVASTATIN CA20 MG PO; BUSPIRONE HCL10 MG PO; CARBIDOPA-LEVO1 EAC7 PO; CARBIDOPA-LEVO1 EAC8 PO; CARBIDOPA-LEVO1 EAC9 PO; CLONAZEPAM 0.50.5 M1 PO; HEALTHYLAX17 GM PO; LAMOTRIGINE200 MG PO; LEXAPRO 10 MG T10 M2 PO; LIPITOR 20 MG T20 M1 PO; LISINOPRIL2.5 MG PO; MAG-AL LIQUID30 ML PO; METFORMIN HCL500 M3 PO; METFORMIN HCL500 MG PO; QUETIAPINE FUM200 MG PO; SENNA PLUS TAB1 EACH PO; SENNA8.8 MG/5 M PO; SEROQUEL 25 MG25 MG PO; SEROQUEL300 MG PO; SINEMET 25-1001 EAC1 PO; VITAMIN D325 MC2 PO; ZOFRAN4 MG PO
[2021-11-01 12:57] VITALS: BP 115/77
[2021-11-01 23:09] LABS: ABSOLUTE NEUTROPHILS 5.9 thou/uL (1.4-8.2); BASOPHILS 0.7 % (0.0-2.0); EOSINOPHILS 1.8 % (0.0-3.0); HEMOGLOBIN 14.7 gm/dL (14.0-18.0); LYMPHOCYTES 25.5 % (24.0-44.0); MCH 31.4 pg (26.0-34.0); MCHC 34.2 g/dL (28.0-37.0); MCV 91.8 fL (80.0-100.0); MONOCYTES 7.7 % (1.0-8.0); PLATELET COUNT 202 thou/uL (150-400); POLYS 64.3 % (36.0-66.0); RBC 4.68 mil/uL (4.50-6.00); RDW 13.4 % (10.5-14.5); WBC 9.2 thou/uL (4.0-11.0)
[2021-11-01 23:16] LABS: CREATININE 0.7 mg/dL (0.7-1.3); POTASSIUM 4.2 mmol/L (3.5-5.1)
[2021-11-01 23:27] LABS: ALBUMIN 3.7 g/dL (3.4-5.0); TOTAL BILIRUBIN 0.6 mg/dL (0.2-1.0); TOTAL PROTEIN 6.9 g/dL (6.4-8.2)
[2021-11-02 07:14] LABS: URINE BILIRUBIN NEGATIVE (Negative); URINE BLOOD NEGATIVE (Negative); URINE CLARITY CLEAR; URINE COLOR YELLOW; URINE GLUCOSE-RANDOM* NEGATIVE (Negative); URINE KETONES NEGATIVE (Negative); URINE LEUKOCYTES-REFLEX NEGATIVE (Negative); URINE NITRITE-REFLEX NEGATIVE (Negative); URINE PROTEIN (DIPSTICK) NEGATIVE (Negative); URINE UROBILINOGEN 0.2 E.U./dl (0.2-1.0)
--- NOTE | 2021-11-02 13:01 | NUR ---
Received call from Ian Blackwell, Field [employer] of [facility] ([phone]) to inform me that they will not accept patient back to their facility. Explained that he must give 30 day notice and since patient does not meet criteria and is Covid + , he will not be admitted to our unit or to medical. Administartor wanted [facility] to find placement for the patient. Explained we cannot do that and that the ED will arrange transportation back to him. Ian stated "so you are sending my problem back to me" and hung up.
[2021-11-02 16:35] VITALS: BP 000/000
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
== END 2021-11-02 16:35 | DRG 194 ==
LOC: ER 12:39 → SBH 22:39 → EROBS 22:39 → SBH 11-02 05:46 → EROBS 11-02 08:10 → SBH 11-02 08:10 → EROBS 11-02 11:29
PROVIDERS: Nurse Practitioner Family; ADMIT Hospitalist; ATTEND Hospitalist
DX: J18.9 Pneumonia, unspecified organism (principal); N30.00 Acute cystitis without hematuria; F33.3 Major depressive disorder, recurrent, severe with psychotic symptoms; K51.90 Ulcerative colitis, unspecified, without complications; I10 Essential (primary) hypertension; E11.9 Type 2 diabetes mellitus without complications; F41.9 Anxiety disorder, unspecified; G47.33 Obstructive sleep apnea (adult) (pediatric); G47.00 Insomnia, unspecified; R45.850 Homicidal ideations; Z20.822 Contact with and (suspected) exposure to COVID-19; K21.9 Gastro-esophageal reflux disease without esophagitis; G20 Parkinson's disease; G31.84 Mild cognitive impairment of uncertain or unknown etiology; Z87.891 Personal history of nicotine dependence; Z88.8 Allergy status to other drugs, medicaments and biological substances; Z91.041 Radiographic dye allergy status; Z83.3 Family history of diabetes mellitus; Z83.6 Family history of other diseases of the respiratory system